=== PATIENT | male | born 1955 | race Caucasian/White ===

== ENCOUNTER 2019-12-16 05:19 | Emergency (ER) | payer OTHER ==
[~2019-12-16] VITALS: Ht 188 cm; Wt 106.6 kg
[~2019-12-16 05:19] MED LIST: ALBUTEROL SULF8.5 GM INH; ATIVAN1 MG ORAL; AZITHROMYCIN250 MG ORAL; BENZTROPINE MESY1 MG PO; LITHIUM CARBON150 MG ORAL; PROMETHAZINE-D118 ML ORAL; RISPERDAL0.25 MG ORAL; SERTRALINE HCL25 MG ORAL
[2019-12-16 05:25] VITALS: BP 148/60
--- NOTE | 2019-12-16 05:25 | NUR ---
ED Nurse Note: Patient wheeled in to ED from home c/o right flank pain x1 hr ago. Per pt, movement made it worse. Denies difficulty urinating/ hematuria. Noted with facial grimacing. Pt AAOx4, verally responsive. No SOB, on room air. Pt placed on telemetry monitor. ERMD at bedside.
[2019-12-16] MEDS ORDERED: HYDROmorphone 1mg/ml Carpuject IVP ONE ×2 (05:30→07:15)
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
--- NOTE | 2019-12-16 05:35 | NUR ---
ED Nurse Note: IV line established. Blood specimen collected and sent to lab.
--- NOTE | 2019-12-16 05:53 | NUR ---
ED Nurse Note: Pt was taken to CT.
[2019-12-16 06:16] LABS: ANION GAP 9 mmol/L (5-15); BLOOD UREA NITROGEN 9 mg/dL (7-18); CARBON DIOXIDE 29 MMOL/L (21-32); CHLORIDE 101 MMOL/L (98-107); CREATININE 1.1 MG/DL (0.55-1.30); POTASSIUM 3.9 MMOL/L (3.5-5.1); SODIUM 139 MMOL/L (136-145)
[2019-12-16 06:27] LABS: CALCIUM 8.3 MG/DL (8.5-10.1)
--- NOTE | 2019-12-16 06:36 | NUR ---
ED Nurse Note: Initial blood specimen clotted. Called labs for blood redraw.
--- NOTE | 2019-12-16 06:44 | NUR ---
ED Nurse Note: Lab personnel at bedside for blood work.
--- NOTE | 2019-12-16 06:51 | Diagnostic Imaging Report ---
EXAM: CT Abdomen and Pelvis Without Intravenous Contrast CLINICAL HISTORY: ABD PAIN TECHNIQUE: Axial computed tomography images of the abdomen and pelvis without intravenous contrast. CTDI is 13.20 mGy and DLP is 7 of 7.7 mGy-cm. One or more of the following dose reduction techniques were used: automated exposure control, adjustment of the mA and/or kV according to patient size, use of iterative reconstruction technique. COMPARISON: No relevant prior studies available. FINDINGS: LUNG BASES + HEART: The included portions of the lungs and heart are grossly unremarkable. LIVER: 6 mm low-attenuation focus in the superior aspect of the left hepatic lobe due to small to characterize and likely represent a cyst. GALLBLADDER: Within normal limits. SPLEEN: Within normal limits. PANCREAS: Within normal limits. ADRENAL GLANDS: Within normal limits. KIDNEYS: Nonobstructing, 3 mm left lower pole calculus. Nonobstructing, 1 mm left upper pole calculus. No hydronephrosis or obstructive uropathy. URINARY BLADDER: Within normal limits. GASTROINTESTINAL: Mild sigmoid diverticulosis, without acute diverticulitis. APPENDIX: Within normal limits. VASCULATURE: Within normal limits. LYMPHADENOPATHY: There are no pathologically enlarged lymph nodes. PELVIC ORGANS: Within normal limits. MUSCULOSKELETAL: Degenerative changes of the spine. Small umbilical hernia measuring 3.7 x 2.5 cm, which contains indurated omental fat. Along the right lateral thigh soft tissues, there is moderate skin thickening with extensive subcutaneous induration with a focal locule of subcutaneous air. These findings are highly suspicious for cellulitis. Clinical correlation recommended to exclude necrotizing fasciitis as there is subcutaneous air. IMPRESSION: Along the right lateral thigh soft tissues, there is moderate skin thickening with extensive subcutaneous induration with a focal locule of subcutaneous air. These findings are highly suspicious for cellulitis. Clinical correlation recommended to exclude necrotizing fasciitis as there is subcutaneous air. Nonobstructing, 3 mm left lower pole calculus. Nonobstructing, 1 mm left upper pole calculus. No hydronephrosis or obstructive uropathy. Small umbilical hernia measuring 3.7 x 2.5 cm, which contains indurated omental fat. Mild sigmoid diverticulosis, without acute diverticulitis.
--- NOTE | 2019-12-16 07:06 | NUR ---
HAND-OFF: Report given to Jonas RN.
--- NOTE | 2019-12-16 07:06 | NUR ---
ED Nurse Note: Report received from CRUZ NARANJO
[2019-12-16 07:09] LABS: BASOPHILS % (AUTO) 0.8 % (0.0-2.0); EOSINOPHILS % (AUTO) 2.3 % (0.0-3.0); HEMATOCRIT 38.2 % (42.0-52.0); MEAN CORPUSCULAR VOLUME 92 FL (80-99); MONOCYTES % (AUTO) 7.3 % (1.0-10.0); NEUTROPHILS % (AUTO) 77.6 % (45.0-75.0); PLATELET COUNT 241 K/UL (150-450); RED BLOOD COUNT 4.14 M/UL (4.70-6.10); RED CELL DISTRIBUTION WIDTH 13.9 % (11.6-14.8); WHITE BLOOD COUNT 9.8 K/UL (4.8-10.8)
[2019-12-16] MEDS ORDERED: Vancomycin 1.5gm/NS Premix 275 ML IVPB ONE (07:15)
[2019-12-16] MEDS ORDERED: Ketorolac 30mg Inj IV ONE (07:15)
[2019-12-16 07:23] LABS: APPEARANCE,URINE CLEAR; BILIRUBIN, URINE NEGATIVE (NEGATIVE); GLUCOSE, URINE (UA) NEGATIVE (NEGATIVE); KETONES,URINE 1+ (NEGATIVE); LEUKOCYTE ESTERASE ,URINE 1+ (NEGATIVE); NITRITE,URINE NEGATIVE (NEGATIVE); PH,URINE 6 (4.5-8.0); PROTEIN,URINE 2+ (NEGATIVE); UROBILINOGEN,URINE 1 MG/DL (0.0-1.0)
[2019-12-16 07:26] LABS: COLOR,URINE YELLOW
--- NOTE | 2019-12-16 08:05 | NUR ---
ED Nurse Note: Rceived patient from bed 09. Patient AAO x4, VSS at this time, IV intact, skin warm to touch. Patient aware that he is going to be transfered to [facility], verbalized understanding.
--- NOTE | 2019-12-16 10:18 | NUR ---
ED Nurse Note: report given to JOSE A Rodas at [facility]
--- NOTE | 2019-12-16 10:52 | NUR ---
ED Nurse Note: Patient was transfered to [facility] via private transportation [id number], with all belongings. Patient pulled out his IV accydentally, pt AAO x4, VSS at this time, still c/o pain of lower back 09/20.
[2019-12-16 10:55] VITALS: BP 158/80
== END 2019-12-16 10:57 | disposition short-term general hospital (02) ==
LOC: EMR 05:32
DX: M54.5 Low back pain (principal); L03.115 Cellulitis of right lower limb; K57.30 Diverticulosis of large intestine without perforation or abscess without bleeding; K42.9 Umbilical hernia without obstruction or gangrene; N20.0 Calculus of kidney; Z88.8 Allergy status to other drugs, medicaments and biological substances
CPT/HCPCS: 36415; 74176; 80048; 81001; 83605; 85025; 87040; 87181; 96361; 96365; 96366; 96375; 96376; 99284; J1170; J1885; J2405; J3370; J7030; U0002